=== PATIENT | male | born 1955 | race Caucasian/White ===

== ENCOUNTER 2017-05-06 12:32 | Emergency (ER) | payer OTHER, BC ==
[2017-05-06 12:36] VITALS: BP 159/92; PULSE 82; TEMP 98.2; BMI 29.9
[2017-05-06] MEDS ORDERED: KETOROLAC TROMETHAMINE 60 MG/2 ML VIAL IM ONE (13:09)
[2017-05-06] MEDS ORDERED: BACITRACIN 15 GM TUBE TOPICAL OINTMENT TP ONE (13:10)
[2017-05-06] MEDS ORDERED: KETOROLAC TROMETHAMINE 60 MG/2 ML VIAL ONE (13:11)
--- NOTE | 2017-05-06 13:11 | PDOC ---
History of Present Illness - General Chief Complaint: Injury Stated Complaint: FALL/ HAND, BACK INJURY Time Seen by Provider: 05/06/17 12:46 History Source: Patient Exam Limitations: No Limitations - History of Present Illness Initial Comments: 05/06/17 13:06 62 yr male with history of HTN states 3 days ago he slipped and fell down his basement steps hit left elbow and lower back. Pt states the low back pain is getting worse and radiates to his lower abdomen. neg nvd, neg urine or bowel dysfunction pt took tylenol for pain. Occurred: reports: other (2 days ago ) Pain Location: reports: back, upper extremity (right elbow) Method of Injury: Yes: fall Loss of Consciousness: no loss of consciousness Associated Symptoms (Fall): denies symptoms Past History - Past Medical History Allergies/Adverse Reactions: Allergies Allergy/AdvReac Type Severity Reaction Status Date / Time No Known Allergies Allergy Unverified 06/21/15 17:34 Home Medications: Ambulatory Orders Losartan/Hydrochlorothiazide [Hyzaar 100-25 Tablet] 1 each PO DAILY 06/21/15 Metoprolol Succinate [Toprol Xl] 50 mg PO DAILY 06/21/15 Cyclobenzaprine HCl [Flexeril -] 5 mg PO TID PRN #21 tablet 05/06/17 Naproxen [Naprosyn -] 500 mg PO BID PRN #21 tablet 05/06/17 HTN: Yes - Psycho/Social/Smoking Cessation Hx Anxiety: No Suicidal Ideation: No Smoking History: Never smoked Have you smoked in the past 12 months: No Information on smoking cessation initiated: No Hx Alcohol Use: No Drug/Substance Use Hx: No Substance Use Type: None Trauma Specific PMHX - Complaint Specific PMHX Back Injury: Yes (years ago has chronic back pain ) Review of Systems - Review of Systems Able to Perform ROS?: Yes Is the patient limited Samoan proficient: No Constitutional: No: Symptoms Reported HEENTM: No: Symptoms Reported Respiratory: No: Symptoms reported Cardiac (ROS): No: Symptoms Reported ABD/GI: No: Symptoms Reported : No: Symptoms Reported Musculoskeletal: Yes: See HPI, Back Pain Integumentary: Yes: Other (right elbow with abrasion ) *Physical Exam - Vital Signs Last Vital Signs Temp Pulse Resp BP Pulse Ox 98.2 F 82 17 159/92 96 05/06/17 12:34 05/06/17 12:34 05/06/17 12:34 05/06/17 12:34 05/06/17 12:34 - Physical Exam General Appearance: Yes: Nourished, Appropriately Dressed HEENT: positive: EOMI, [place] Neck: positive: Supple. negative: Tender Respiratory/Chest: positive: Lungs Clear, Normal Breath Sounds Cardiovascular: positive: Regular Rhythm, Regular Rate Gastrointestinal/Abdominal: positive: Normal Bowel Sounds, Soft. negative: Tender, Guarding, Rebound, Tenderness, Hernia Musculoskeletal: positive: Normal Inspection, Vertebral Tenderness (lumbar area , no bruising , no swelling ). negative: CVA Tenderness, CVA Tenderness (R), CVA Tenderness (L), Decreased Range of Motion, Muscle Spasm Extremity: positive: Normal Capillary Refill, Normal Inspection, Normal Range of Motion, Other (right elbow with abrasion no redness or drainage). negative: Tender Integumentary: positive: Normal Color, Dry, Warm Neurologic: positive: Fully Oriented, Alert, Normal Mood/Affect, Normal Response , Motor Strength /5 Medical Decision Making - Medical Decision Making 05/06/17 14:13 cc: mechanical fall 2 days ago injured right elbow and low back no urine or bowel dysfunction no saddle anesthesia pt is ambulaltory non tender abd on exam 05/06/17 14:15 *DC/Admit/Observation/Transfer Diagnosis at time of Disposition: Contusion Qualifiers: Encounter type: initial encounter Contusion area: lower back Qualified Code(s) : S30.0XXA - Contusion of lower back and pelvis, initial encounter - Discharge Dispostion Disposition: HOME Condition at time of disposition: Good - Prescriptions Prescriptions: Cyclobenzaprine HCl [Flexeril -] 5 mg PO TID PRN #21 tablet PRN Reason: Muscle Spasms Naproxen [Naprosyn -] 500 mg PO BID PRN #21 tablet PRN Reason: Back Pain - Patient Instructions Additional Instructions: take the medications as prescribed warm showers, warm compresses to lower back , use over the counter ICY HOT back patches or rubbing cream follow with your doctor in 1-2 days for follow up Return to ER if any worsening symptoms
[2017-05-06 13:39] LABS: URINE APPEARANCE CLEAR; URINE BILIRUBIN NEGATIVE (NEGATIVE); URINE BLOOD NEGATIVE (NEGATIVE); URINE COLOR LTYELLOW; URINE GLUCOSE (UA) NEGATIVE (NEGATIVE); URINE KETONE NEGATIVE (NEGATIVE); URINE LEUK ESTERASE NEGATIVE (NEGATIVE); URINE NITRITE NEGATIVE (NEGATIVE); URINE PROTEIN NEGATIVE (NEGATIVE); URINE UROBILINOGEN NEGATIVE mg/dL (0.2-1.0)
== END 2017-05-06 14:28 | disposition home or self-care (01) ==
LOC: JERFT 12:32
PROC: 3E0233Z Introduction of Anti-inflammatory into Muscle, Percutaneous Approach (ICD-10-PCS; principal; 2017-05-06)
DX: S30.0XXA Contusion of lower back and pelvis, initial encounter (principal); W10.9XXA Fall (on) (from) unspecified stairs and steps, initial encounter; Y93.89 Activity, other specified; Y92.008 Other place in unspecified non-institutional (private) residence as the place of occurrence of the external cause; I10 Essential (primary) hypertension
CPT/HCPCS: 72100-TC; 73070-TC-RT; 81003; 99281-25